=== PATIENT | male | born 1945 | race Caucasian/White ===

== ENCOUNTER → 2016-06-02 | Outpatient (CLI) | payer MEDICARE, OTHER ==
[~2016-06-02] MED LIST: ADVAIR; ADVAIR DISKUS1 DS1 IH; AMLODIPINE BESY1 CA1 PO; COMBIVENT1 AR1 IH; FUROSEMIDE20 MG PO; IPRATROPIUM BROM3 M1 IH; LEVAQUIN 5500 MG/TA1 PO; MEDROL 4MG DOSPA4 MG PO; PREDNISONE20 M1 PO; SIMVASTATIN20 MG PO; TESSALON PERLE200 MG PO
== END ==
LOC: LAB 15:14
DX: T81.4XXA Infection following a procedure, initial encounter (principal); B96.89 Other specified bacterial agents as the cause of diseases classified elsewhere

== ENCOUNTER → 2016-07-01 | Outpatient (CLI) | payer MEDICARE, OTHER | LOC: RAD 08:57 | DX: J35.1 Hypertrophy of tonsils (principal); J02.9 Acute pharyngitis, unspecified | CPT/HCPCS: Q9967 ==

== ENCOUNTER → 2018-04-02 | Outpatient (CLI) | payer MEDICARE, OTHER ==
[2013-08-24 13:22] VITALS: BP 126/85
== END ==
LOC: RAD 09:15
DX: J84.9 Interstitial pulmonary disease, unspecified (principal)

== ENCOUNTER → 2020-07-13 | Outpatient (CLI) | payer MEDICARE, OTHER ==
[2013-08-24 13:22] VITALS: BP 126/85
== END ==
LOC: VAS 15:28 → RAD 15:45
DX: R01.1 Cardiac murmur, unspecified (principal)

== ENCOUNTER 2021-07-14 13:23 | Emergency (ER) | payer MEDICARE, OTHER ==
[~2021-07-14] VITALS: Ht 154.9 cm; Wt 90.9 kg
[2021-07-14] MEDS ORDERED: AMLODIPINE BESY1 C17 PO (13:36)
[2021-07-14] MEDS ORDERED: BENZONATATE100 M2 PO (13:37)
[2021-07-14] MEDS ORDERED: SIMVASTATIN20 M1 PO (13:37)
[2021-07-14] MEDS ORDERED: ANORO ELLIPTA1 POW IH (13:37)
[2021-07-14] MEDS ORDERED: BENADRYL PO (13:39)
[2021-07-14 14:09] LABS: HEMATOCRIT 58.9 % (42.0-52.0); HEMOGLOBIN 18.8 g/dL (13.5-18.0); MEAN CELL VOLUME 101 fl (78-100); MEAN CORPUSCULAR HEMOGLOBIN 32 pg (27-31); MEAN CORPUSCULAR HGB CONC 32 g/dL (33-37); MEAN PLATELET VOLUME 8.9 fl (7.4-10.4); PLATELET COUNT 144 K/mm3 (130-400); RED BLOOD COUNT 5.83 M/mm3 (4.20-5.60); RED CELL DISTRIBUTION WIDTH 13.3 % (11.5-14.5); WHITE BLOOD COUNT 5.5 K/mm3 (4.8-10.8)
[2021-07-14 14:46] LABS: D-DIMER 1.15 mg/L FEU (0.15-0.50); LYMPHOCYTE 10 % (20-51); MONOCYTE 10 % (3-10); NEUTROPHILS 79 % (42-75); PROTHROMBIN TIME 11.4 SECONDS (9.0-12.0)
[2021-07-14 15:28] LABS: POTASSIUM 4.2 mmol/L (3.5-5.1)
[2021-07-14 15:30] LABS: CALCIUM 8.8 mg/dL (8.3-10.5)
[2021-07-14 15:31] LABS: ALBUMIN 3.8 g/dL (3.4-4.8)
[2021-07-14 15:32] LABS: TOTAL PROTEIN 6.4 g/dL (6.2-8.1)
[2021-07-14 15:33] LABS: TOTAL BILIRUBIN 0.6 mg/dL (0.2-1.2)
[2021-07-14 15:56] LABS: TROPONIN-I 0.074 ng/mL (<0.030)
[2021-07-14 17:12] LABS: URINE COLOR YELLOW
[2021-07-14 17:13] LABS: URINE APPEARANCE CLEAR; URINE BILIRUBIN NEGATIVE (NEGATIVE); URINE BLOOD NEGATIVE (NEGATIVE); URINE GLUCOSE NEGATIVE (NEGATIVE); URINE KETONE NEGATIVE (NEGATIVE); URINE LEUKOCYTE ESTERASE NEGATIVE (NEGATIVE); URINE MUCUS PRESENT (NOT PRESENT); URINE NITRATE NEGATIVE (NEGATIVE); URINE PROTEIN(semi-quant) 1+ (NEGATIVE); URINE UROBILINOGEN 1 mg/dL (NORMAL); URINE WBC 0-1 /hpf (0-3)
[2021-07-14 17:56] VITALS: BP 107/70
== END 2021-07-14 17:59 | disposition short-term general hospital (02) ==
LOC: ED 13:23
PROVIDERS: Physician Assistant
DX: J90 Pleural effusion, not elsewhere classified (principal); I50.9 Heart failure, unspecified; I48.91 Unspecified atrial fibrillation; R79.89 Other specified abnormal findings of blood chemistry; R09.02 Hypoxemia; Z87.891 Personal history of nicotine dependence; Z20.822 Contact with and (suspected) exposure to COVID-19
CPT/HCPCS: J1650; J1940; Q9967